=== PATIENT | female | born 2000 | race Caucasian/White ===

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

== ENCOUNTER → 2020-02-20 15:59 | Outpatient (CLI) | payer BC, SELFPAY ==
[2020-02-23 19:22] LABS: Neisseria gonorrhoeae, NAA Negative (Negative)
== END ==
PROVIDERS: Visit Provider Nurse Practitioner Obstetrics & Gynecology
DX: Z72.51 High risk heterosexual behavior (principal)
CPT/HCPCS: 87491; 87591

== ENCOUNTER 2020-06-22 16:30 | Emergency (ER) | payer BC, SELFPAY ==
[2020-06-22 16:39] VITALS: BP 133/86; PULSE 103; RESP 18; TEMP 36.6; O2SAT 98; BMI 25.5
--- NOTE | 2020-06-22 16:49 | HMH.EDUTC ---
[facility] [place] Disposition Clinical Impression: Exposure to COVID-19 virus Disposition: Home, Self-Care Condition on Discharge: Good Instructions: Preventing the Spread of Coronavirus Discharge Instructions Additional Instructions: You have been tested for COVID19. These results should be available in 24-48 hours. Due to your exposure, you must quarantine for 14 days. If your test is positive, you will isolate yourself for 10 days and until you are symptom free. Referrals: Mike Seo MD [Primary Care Provider] - Time of Disposition: 16:53 Medical Decision Making - Jimmy Inquiry Pt receiving controlled substance: No Vital Signs: 06/22/20 16:39 Temperature 97.9 F Temperature Source Oral Pulse Rate [Radial] 103 H Respiratory Rate 18 Blood Pressure [Right Arm] 133/86 Blood Pressure Mean [Right Arm] 101 Blood Pressure Source [Right Arm] Automatic Cuff Blood Pressure Position [Right Arm] Sitting 02 Sat by Pulse Oximetry 98 Oxygen Delivery Method Room Air Orders (Tests/Meds): ORDERS Category Date Time Status Covid-19 Nasal PCR Sendout Charlie Stat Lab 06/22/20 16:40 Received [facility] [place] HPI - General Stated complaint: covid test Time Seen by Provider: 06/22/20 16:49 Mode of Arrival: Ambulatory Source of Information: Patient Limitations: No Limitations Description of Symptoms (Recalled from Triage Doc. by RN): covid test, weird tast, dizzy, scraty throat HEENT Symptoms (Recalled from RN notes): Yes Resp Symptoms (Recalled from RN notes): No Skin Symptoms (Recalled from RN notes): No MS Symptoms (Recalled from RN notes): No Functional Status (Recalled from RN notes): wnl - History of Present Illness Provider Complaint: Patient's mother tested positive for COVID19 yesterday and patient started having symptoms last night. Has fever, headache, scratchy throat and has been dizzy. No loss of taste or smell. Onset (ago): day(s) (1) Relieving factors: none Exacerbating factors: none Associated symptoms: fever/chills Treatments prior to arrival: none - Related Data Previous Rx's Medication Instructions Recorded levonorgestrel-ethinyl estradiol 1 tab PO DAILY #84 tab 02/20/20 0.1 mg-20 mcg tablet quetiapine 50 mg tablet 50 mg PO QHS #30 tab 05/30/20 Allergies Allergy/AdvReac Type Severity Reaction Status Date / Time No Known Allergies Allergy Verified 02/20/20 10:39 - Worker's Comp Is this a Worker's Comp case?: No [facility] History - Hepatitis A Screen Drug use history?: No High risk sexual behaviors?: No History of sexually transmitted infection?: No Currently employed?: No Childcare worker?: No Do you have indoor plumbing?: Yes Do you have electricity?: Yes Attestation statement:: This patient has been screened for Hepatitis A risk factors. I have reviewed the patient's past medical history: Yes Medical History: Denies:: Cancer, Diabetes Mellitus Type 1, Diabetes Mellitus Type 2, MRSA Other Surgeries: Yes: No Previous Surgery Amputation: No Fractures: No - Social History Smoking Status: Never smoker Alcohol Intake: never Substance Use Type: denies use Occupational Status: other Housing: house Household Members: family Family Hx:: No significant family history ROS Obtained: Yes All systems reviewed & no additional complaints - Constitutional Constitutional: Reports body ache, Reports chills, Reports fever(s) - ENT Ears, Nose, Mouth, and Throat: Reports dizziness, Reports sore throat Physical Exam - General General appearance: alert, in no apparent distress - Head Head exam: normocephalic - Eye Eye exam: Present: PERRL - ENT ENT exam: Present: normal oropharynx - Neck Neck exam: Present: full ROM. Absent: lymphadenopathy - Respiratory Respiratory exam: Present: normal lung sounds bilaterally - Cardiovascular Cardiovascular exam: Present: regular rate, normal rhythm - Neurological Exam Neurological exam: Present: alert, oriented X3 - Psychi
[2020-06-22 17:06] VITALS: BP 133/86; PULSE 103; RESP 18; TEMP 36.6; O2SAT 98
== END 2020-06-22 17:07 | disposition home or self-care (01) ==
PROVIDERS: Emergency Provider Physician Assistant; PCP Emergency Medicine
DX: Z20.828 Contact with and (suspected) exposure to other viral communicable diseases (principal); R50.9 Fever, unspecified
CPT/HCPCS: 99201; U0003

== ENCOUNTER → 2021-03-03 16:20 | Outpatient (CLI) | payer BC, SELFPAY ==
[2021-03-03 16:58] LABS: Basophils # 0.1 K/mm3 (0-0.2); Basophils % 0.9 % (0.1-2.0); Eosinophils # 0.2 K/mm3 (0.0-0.4); Eosinophils % 1.7 % (0.1-12.0); Hematocrit 42.8 % (37.0-47.0); Hemoglobin 14.6 g/dL (12.2-16.2); Lymphocytes # 2.9 K/mm3 (0.7-4.5); Lymphocytes % 25.4 % (10-50); Mean Corpuscular HGB Conc 34.2 g/dL (31.8-35.4); Mean Corpuscular Hemoglobin 31.7 pg (27.0-31.2); Mean Corpuscular Volume 92.8 fl (81-99); Mean Platelet Volume 7.7 fl (7.4-10.4); Monocytes # 0.6 K/mm3 (0.1-1.0); Monocytes % 5.3 % (1.7-9.3); Neutrophils # 7.6 K/mm3 (1.8-7.8); Neutrophils % 66.7 % (37.0-80.0); Platelet Count 359 K/mm3 (142-424); Red Blood Count 4.61 M/mm3 (4.20-5.40); Red Cell Distribution Width 12.6 % (11.5-17.5); White Blood Count 11.5 K/mm3 (4.8-10.8)
[2021-03-03 17:43] LABS: Hemoglobin A1C 4.9 % (4.0-6.0)
[2021-03-03 18:51] LABS: Alanine Aminotransferase 12 U/L (12-78); Albumin Level 4.7 g/dl (3.5-5.0); Albumin/Globulin Ratio 1.6 (1.1-1.8); Alkaline Phosphatase 65 U/L (38-126); Anion Gap 17.2 mEq/L (5-15); Aspartate Amino Transferase 20 U/L (14-36); Bilirubin,Total 0.7 mg/dl (0.2-1.3); Blood Urea Nitrogen 13 mg/dl (7-17); Calcium 9.4 mg/dl (8.4-10.2); Carbon Dioxide 24 mmol/L (22.0-30.0); Chloride 102 mmol/L (98-107); Estimated Glomerular Filt Rate 126 ml/min (>60); GFR (African American) 153 ML/MIN (>60); Globulin 2.9 g/dL (1.3-3.2); Glucose 74 mg/dl (74-100); Potassium 4.2 mmoL/L (3.5-5.1); Sodium 139 mmol/L (136-145); Total Protein,Serum 7.6 g/dl (6.3-8.2)
[2021-03-03 19:08] LABS: Free Thyroxine Index 2.4 ug/dL (5.93-13.13); T4 (Thyroxine) 10.3 ug/dl (5.53-11.0); Triiodothryronine (T3) Uptake 23 % (23.5-40.5)
[2021-03-03 19:22] LABS: Thyroid Stimulating Hormone 3.85 uIU/mL (0.465-4.68)
[2021-03-03 19:40] LABS: Vitamin B12 300 pg/mL (239-931)
[2021-03-03 20:25] LABS: Iron 89 ug/dL (37-170)
[2021-03-03 20:34] LABS: Total Iron Binding Capacity 407 ug/dL (265-497)
[2021-03-11 18:23] LABS: 1,25 Dihydroxy Vitamin D 59 pg/mL (.); 1,25-Dihydroxy, Vitamin D-2 <10 pg/mL (.); 1,25-Dihydroxy, Vitamin D-3 59 pg/mL (.)
== END ==
PROVIDERS: Visit Provider Nurse Practitioner Psychiatric/Mental Health
DX: Z00.00 Encounter for general adult medical examination without abnormal findings (principal); Z79.899 Other long term (current) drug therapy; E66.3 Overweight; Z68.29 Body mass index [BMI] 29.0-29.9, adult
CPT/HCPCS: 36415; 80053; 82607; 82652; 83036; 83540; 83550; 84436; 84443; 84479; 85025

== ENCOUNTER → 2021-06-29 09:34 | Outpatient (CLI) | payer BC, SELFPAY | PROVIDERS: PCP Emergency Medicine; Visit Provider Nurse Practitioner | DX: U07.1 COVID-19 (principal) | CPT/HCPCS: C9803; U0003; U0005 ==

== ENCOUNTER 2021-08-24 15:47 | Emergency (ER) | payer BC, SELFPAY ==
[2021-08-24 15:49] VITALS: BP 125/81; PULSE 94; RESP 16; TEMP 36.9; O2SAT 98; BMI 29.9
--- NOTE | 2021-08-24 17:26 | HMH.EDGENADL ---
ED Disposition Clinical Impression: Episode of heavy vaginal bleeding Disposition: Home, Self-Care Condition on Discharge: Good Instructions: DI for Vaginal Bleeding Additional Instructions: follow up [employer], return for worse Referrals: Mike Seo MD [Primary Care Provider] - - Critical Care Critical Care Time: No Attestation: On 08/24/21, the high probability of a clinically significant, sudden or life threatening deterioration of the following system(s) required my full and direct attention, intervention and personal management. The time I documented below is in addition to time spent performing reported procedures but includes the following listed in this critical care notation. Medical Decision Making - Medical Records Medical records reviewed: Yes: I reviewed the patient's medical records. - Jimmy Inquiry Pt receiving controlled substance: No Vital Signs: 08/24/21 15:49 Temperature 98.4 F Temperature Source Oral Pulse Rate [Right Radial] 94 H Respiratory Rate 16 Blood Pressure [Right Arm] 125/81 Blood Pressure Mean [Right Arm] 95 Blood Pressure Source [Right Arm] Automatic Cuff Blood Pressure Position [Right Arm] Sitting 02 Sat by Pulse Oximetry 98 Oxygen Delivery Method Room Air - Lab Data Lab Results 08/24/21 17:15: Urine HCG, Qual Negative 08/24/21 17:18: Urine Color [place], Urine Appearance Cloudy, Urine pH 6.0, Ur Specific [place] >= 1.030, Urine Protein 2+, Urine Glucose (UA) Negative, Urine Ketones Trace, Urine Blood 3+, Urine Nitrate Negative, Urine Bilirubin 1+ A, Urine Urobilinogen 1.0, Ur Leukocyte Esterase Trace, Urine RBC 10-20, Urine WBC 20-50, Ur Squamous Epith Cells 3-5, Urine Bacteria 2+ Orders (Tests/Meds): ED MEDICATIONS Discontinued Medications Generic Name Dose Route Start Last Admin Trade Name Freq PRN Reason Stop Dose Admin Naproxen 500 mg 08/24/21 18:11 Naproxen 500mg Tablet PO 08/24/21 18:12 ONCE ONE ORDERS Category Date Time Status CMP [Comprehensive Metabolic Panel] Stat Lab 08/24/21 17:15 Ordered Complete Blood Count Auto Diff Stat Lab 08/24/21 17:15 Ordered Urine Culture Stat Micro 08/24/21 17:18 Received Medical Decision Narrative: reeval, pt says she was instructeds to take her period pills today by her [employer] declined labs here, r/b/a explaied preg test neg no appearance of severe pain, abd soft ok with plan to f/u [employer] and return for worse General Adult HPI - General Chief complaint: Vaginal Bleeding Stated complaint: passing large blood clots, Time Seen by Provider: 08/24/21 17:26 Mode of Arrival: Ambulatory Limitations: No Limitations Description of Symptoms (Recalled from ER Triage Doc. by RN): Pt c/o lower abd pain with vaginal bleeding consisting of large clots that began this AM. Advises that she has been more fatigued the last two days and. Pt advises that her last normal period was 2 months ago - History of Present Illness HPI narrative: abd cramps, passing vag bleed/clots tampons x3/pad now Onset (ago): hour(s) Location: abdomen Radiation: non-radiation Severity: moderate Consistency: intermittent Relieving factors: none Exacerbating factors: none Associated symptoms: denies other symptoms - Related Data Previous Rx's Medication Instructions Recorded levonorgestrel-ethinyl estradiol 1 tab PO DAILY #84 tab 02/20/20 0.1 mg-20 mcg tablet propranolol 10 mg tablet 10 mg PO TID PRN #90 tab 09/15/20 trazodone 50 mg tablet 50 mg PO QHS #30 tab 03/03/21 sertraline 50 mg tablet 50 mg PO DAILY #30 tab 07/27/21 Allergies Allergy/AdvReac Type Severity Reaction Status Date / Time No Known Allergies Allergy Verified 03/23/21 14:35 [facility] History - Hepatitis A Screen Drug use history?: No High risk sexual behaviors?: No History of sexually transmitted infection?: No Currently employed?: No Childcare worker?: No Do you have indoor plumbing?: Yes Do you have electricity?: Yes Attest
[2021-08-24 17:27] LABS: Microscopic, Urine URINE MICROSCOPIC (MICROSCOPIC)
[2021-08-24 17:30] LABS: Appearance,Urine CLOUDY (Clear); Blood, Urine 3+ (Negative); Color,Urine ORANGE (Yellow); Glucose,Urine (UA) Negative (Negative); Ketones,Urine TRACE (Negative); Leukocyte Esterase,Urine TRACE (Negative); Nitrate,Urine Negative (Negative); Protein,Urine 2+ (Negative); Specific Gravity, Urine >= 1.030 (1.005-1.030)
[2021-08-24 17:38] LABS: Urine Pregnancy, HCG Qual. Negative (Negative)
[2021-08-24 17:44] LABS: Bilirubin,Urine 1+ (Negative)
[2021-08-24 17:52] LABS: WBC,Urine 20-50 #/hpf (0-3)
[2021-08-24 17:53] LABS: Bacteria,Urine 2+ /lpf
[2021-08-24 19:01] VITALS: BP 129/73; PULSE 72
[2021-08-24 19:02] VITALS: BP 129/73; PULSE 72; RESP 18; TEMP 36.7; O2SAT 97
== END 2021-08-24 19:04 | disposition home or self-care (01) ==
PROVIDERS: Emergency Provider Emergency Medicine; PCP Emergency Medicine
DX: N93.9 Abnormal uterine and vaginal bleeding, unspecified (principal); F33.1 Major depressive disorder, recurrent, moderate
CPT/HCPCS: 81001; 81025; 87086; 99282

== ENCOUNTER → 2021-08-26 08:52 | Outpatient (CLI) | payer BC, SELFPAY ==
--- NOTE | 2021-08-26 08:56 | US_ITS ---
FINAL REPORT CLINICAL HISTORY: Heavy Bleeding and Pelvic Pain FINDINGS: Transvaginal sonographic images of the pelvis were obtained. The uterus is retroverted and measures 7 x 4.8 x 5 cm. The endometrium measures 10 mm, which is within normal limits. No uterine mass is identified. The right ovary measures 3.6 cm in length and left ovary is enlarged measuring 8.1 cm in length. Normal blood flow seen to the ovaries. Small follicles are seen within the right ovary. There are 2 presumed left ovarian cyst with the largest measuring 5 cm. There is a small amount of pelvic free fluid, nonspecific and may be physiologic. IMPRESSION: Two presumed left ovarian cysts. Consider follow-up ultrasound in 8-10 weeks. Small amount of pelvic free fluid, nonspecific and may be physiologic. Reviewed, Interpreted and Dictated by Jason Loja III, MD Transcribed by Abiola Archer Authenticated by Jason Loja III, MD on 08/26/2021 01:59:59 PM [facility]
== END ==
PROVIDERS: PCP Emergency Medicine; Visit Provider Nurse Practitioner Obstetrics & Gynecology
DX: R10.2 Pelvic and perineal pain (principal); N92.0 Excessive and frequent menstruation with regular cycle
CPT/HCPCS: 76830

== ENCOUNTER → 2021-09-14 16:52 | Outpatient (CLI) | payer BC, SELFPAY ==
[2021-09-16 22:25] LABS: Neisseria gonorrhoeae, NAA Negative (Negative)
== END ==
PROVIDERS: Visit Provider Nurse Practitioner Obstetrics & Gynecology
DX: Z72.51 High risk heterosexual behavior (principal)
CPT/HCPCS: 87491; 87591

== ENCOUNTER 2023-08-23 11:07 | Emergency (ER) | payer OTHER, SELFPAY ==
[2023-08-23 11:35] VITALS: BP 126/76; PULSE 110; RESP 20; TEMP 37.2; O2SAT 97; BMI 24.7
--- NOTE | 2023-08-23 12:02 | ED_ITS ---
Discharge Plan Disposition Patient Disposition: Home, Self-Care Condition: Good Prescriptions Prescriptions: New ondansetron 4 mg Tablet,Disintegrating 4 mg PO Q8H PRN (Reason: Nausea) Qty: 20 0RF Referrals Follow up/Referrals: Provider,Referral, MD [Primary Care Provider] - See instructions Activity Restrictions/Add. Instructions Additional Instructions/Restrictions: Drink extra fluids with and between meals. If you have difficulty drinking, try very small amounts of water or suck on ice chips. ? Avoid fruit juices, as these do not replace minerals and can actually increase diarrhea. ? Children and adults can use sports drinks to replenish electrolytes. Younger children and infants should use products formulated for children, like oral rehydration solutions. ? Eat food in small amounts and let your stomach recover. ? Get lots of rest. You may feel tired or weak. ? No greasy or fried foods for the next 24-48 hours BRAT diet Bananas Rice Apples and [place] ? Make sure to drink plenty of liquids ? Return if needed ? Straight to ER if any life threatening symptoms ? Zofran as prescribed ? You was given an outpatient order for diarrhea panel, please collect specimen and bring back to outpatient lab then call back to the [facility] or follow up with family doctor for results ? Follow up with family doctor in the next 48-72 hours if no improvement or any worsening of symptoms Clinical Impressions Clinical Impression: Nausea, vomiting and diarrhea Stand Alone Forms Stand Alone Forms: Work/School Release Instructions Patient Instructions: Nausea and Vomiting-Adult, Diarrhea Discharge ED Provider: Sharon Nagel [facility] [place] HPI General Stated complaint: vomiting, diarrhea Mode of Arrival: Ambulatory Source of Information: Patient Limitations: No Limitations Time Seen by Provider: 08/23/23 12:02 Description of Symptoms (Recalled from Triage Doc. by RN): PATIENT C/O VOMITING AND DIARRHEA THAT STARTED LAST NIGHT HEENT Symptoms (Recalled from RN notes): No Resp Symptoms (Recalled from RN notes): No Skin Symptoms (Recalled from RN notes): No MS Symptoms (Recalled from RN notes): No Functional Status (Recalled from RN notes): WNL History of Present Illness Provider Complaint: Patient states that she started with nausea, vomiting and diarrhea last night and it continued throughout the night States that she is not sure if she has a stomach bug or maybe food poisoning since her significant other is having similar symptoms Related Data Previous Rx's Medication Instructions Recorded ondansetron 4 mg disintegrating 4 mg PO Q8H PRN Nausea #20 tabs 08/23/23 tablet Allergies Allergy/AdvReac Type Severity Reaction Status Date / Time No Known Allergies Allergy Verified 10/13/22 16:10 Worker's Comp Is this a Worker's Comp case?: No [facility] Disclaimer: The information contained in this section may have been updated after the patient was seen, as this information can be updated by other users. Medical History Joint pain Social History Smoking Status: Never smoker alcohol intake: never substance use type: denies use current occupational status: employed Travel in the last 8 weeks: None household members: family housing: house number of children: 0 ROS Obtained: Yes All systems reviewed & no additional complaints except as documented and Yes Systems reviewed as appropriate & no additional complaints except as documented Constitutional Constitutional: Reports system reviewed and no additional complaints, except as documented and Reports as per HPI ENT Ears, Nose, Mouth, and Throat: Reports system reviewed and no additional complaints, except as documented and Reports as per HPI Cardiovascular Cardiovascular: Reports system reviewed and no additional complaints, except as documented and Reports as per HPI Respiratory Respiratory: Reports system reviewed and no additional complaints, except as documented and Reports as per HPI Gastrointestinal Gastrointestingal: Reports system reviewed and no additional complaints, except as documented, as per HPI, diarrhea, nausea and vomiting; Denies abdominal pain Musculoskeletal Musculoskeletal: Reports system reviewed and no additional complaints, except as documented and Reports as per HPI Physical Exam General General appearance: alert and in no apparent distress ENT ENT exam: Present mucous membranes moist Respiratory Respiratory exam: Present normal lung sounds bilaterally; Absent respiratory distress or wheezes Cardiovascular Cardiovascular exam: Present regular rate, normal rhythm and normal heart sounds Abdominal Exam Abdominal exam: Present soft and normal bowel sounds; Absent distention or tenderness Neurological Exam Neurological exam: Present alert, oriented X3 and normal gait Medical Decision Making Jimmy Inquiry Pt receiving controlled substance: No Jimmy was queried for this patient: No Vital Signs: 08/23/23 11:35 Temperature 98.9 F Temperature Source Oral Pulse Rate [Left Brachial] 110 H Respiratory Rate 20 Blood Pressure [Left Arm] 126/76 Blood Pressure Mean [Left Arm] 92 Blood Pressure Source [Left Arm] Automatic Cuff Blood Pressure Position [Left Arm] Sitting 02 Sat by Pulse Oximetry 97 Oxygen Delivery Method Room Air Medical Decision Narrative: Denies states that she just got off menstrual cycle
[2023-08-23 12:10] VITALS: BP 126/76; PULSE 110; RESP 20; TEMP 37.2; O2SAT 97
== END 2023-08-23 12:14 | disposition home or self-care (01) ==
PROVIDERS: Emergency Provider Nurse Practitioner
DX: R11.2 Nausea with vomiting, unspecified (principal); R19.7 Diarrhea, unspecified
CPT/HCPCS: 99204; 99212; G0463

== ENCOUNTER 2024-02-04 09:53 | Emergency (ER) | payer OTHER, SELFPAY ==
[2024-02-04 09:56] VITALS: BP 141/85; PULSE 104; RESP 18; TEMP 37.2; O2SAT 96; BMI 24.1
[2024-02-04 09:59] VITALS: BP 141/85
--- NOTE | 2024-02-04 10:23 | PC.NURSE ---
dr helm at bedside
[2024-02-04 10:30] VITALS: BP 113/65; PULSE 89; RESP 18; O2SAT 98
--- NOTE | 2024-02-04 10:30 | XR_ITS ---
PROCEDURE INFORMATION: Exam: XR Chest Exam date and time: 02/04/2024 10:41 AM Age: 23 years old Clinical indication: Dyspnea TECHNIQUE: Imaging protocol: Radiologic exam of the chest. Views: 1 view. COMPARISON: No relevant prior studies available. FINDINGS: Lungs: Unremarkable. No consolidation. Pleural spaces: Unremarkable. No pleural effusion. No pneumothorax. Heart/Mediastinum: Unremarkable. No cardiomegaly. Bones/joints: Unremarkable. IMPRESSION: No acute findings.
--- NOTE | 2024-02-04 10:31 | ED_ITS ---
Discharge Plan Disposition Chief Complaint: Upper Respiratory Infection Prescriptions Prescriptions: No Action ondansetron 4 mg Tablet,Disintegrating 4 mg PO Q8H PRN (Reason: Nausea) Qty: 20 0RF Referrals Follow up/Referrals: Provider,Referral, [Primary Care Provider] - See instructions Clinical Impressions Clinical Impression: COVID-19, Laryngitis, Diarrhea, Cough, Tachycardia Discharge ED Provider: Elena Lowe General Adult HPI General Chief complaint: Upper Respiratory Infection Stated complaint: Covid+ Fever [address] [facility] Time Seen by Provider: 02/04/24 10:18 Mode of Arrival: Ambulatory Source of Information: Patient Limitations: No Limitations Description of Symptoms (Recalled from ER Triage Doc. by RN): Patient reports testing positive for COVID yesterday. Complaint of sore throat since Tuesday. States she checked her O2 at home and it read 92 so she came to the ER. History of Present Illness HPI narrative: Patient is a 23-year-old female presenting today with 3 days of cough diarrhea body aches fever and hoarse voice. States she had a home pulse oximeter with her parents and thought that her oxygen saturations were getting low and she came to the emergency department. She denies any significant shortness of breath. She has no underlying heart or lung problems or any other past medical problems. Related Data Previous Rx's Medication Instructions Recorded ondansetron 4 mg disintegrating 4 mg PO Q8H PRN Nausea #20 tabs 08/23/23 tablet Allergies Allergy/AdvReac Type Severity Reaction Status Date / Time No Known Allergies Allergy Verified 10/13/22 16:10 [facility] Disclaimer: The information contained in this section may have been updated after the patient was seen, as this information can be updated by other users. Medical History Joint pain Social History Smoking Status: Never smoker alcohol intake: never substance use type: denies use current occupational status: employed Travel in the last 8 weeks: None household members: family housing: house number of children: 0 ROS Obtained: Yes All systems reviewed & no additional complaints except as documented Physical Exam General General appearance: alert, in no apparent distress and other (Hoarse voice) ENT ENT exam: Present normal exam, normal oropharynx and mucous membranes moist Respiratory Respiratory exam: Present normal lung sounds bilaterally; Absent respiratory distress Cardiovascular Cardiovascular exam: Present normal rhythm and tachycardia Abdominal Exam Abdominal exam: Present soft; Absent distention or tenderness Neurological Exam Neurological exam: Present alert and oriented X3 Medical Decision Making Jimmy Inquiry Pt receiving controlled substance: No Vital Signs: 02/04/24 09:56 02/04/24 09:59 02/04/24 10:30 Temperature 99.0 F Temperature Source Oral Pulse Rate 89 Pulse Rate [Radial] 104 H Respiratory Rate 18 18 Blood Pressure 141/85 H 113/65 Blood Pressure [Right Arm] 141/85 H Blood Pressure Mean 110 81 Blood Pressure Mean [Right Arm] 103 Blood Pressure Source [Right Arm] Automatic Cuff Blood Pressure Position [Right Arm] Sitting 02 Sat by Pulse Oximetry 96 98 Oxygen Delivery Method Room Air 02/04/24 11:00 Temperature Temperature Source Pulse Rate 86 Pulse Rate [Radial] Respiratory Rate 18 Blood Pressure 97/69 L Blood Pressure [Right Arm] Blood Pressure Mean 77 Blood Pressure Mean [Right Arm] Blood Pressure Source [Right Arm] Blood Pressure Position [Right Arm] 02 Sat by Pulse Oximetry 10 L Oxygen Delivery Method Lab Data Lab results reviewed: Yes I reviewed the patient's lab results. Lab Results 02/04/24 10:36: WBC 6.6, RBC 3.92 L, Hgb 12.9, Hct 38.2, MCV 97.6, MCH 33.0 H, MCHC 33.8, RDW 12.9, Plt Count 256, MPV 8.0, Neut % (Auto) 79.2, Lymph % (Auto) 12.9, [place] % (Auto) 5.5, Eos % (Auto) 1.4, Baso % (Auto) 0.9, Neut # (Auto) 5.2, Lymph # (Auto) 0.9, [place] # (Auto) 0.4, Eos # (Auto) 0.1, Baso # (Auto) 0.1, Sodium 139, Potassium 4.0, Chloride 108 H, Carbon Dioxide 25, Anion Gap 10.0, BUN 10, Creatinine 0.60, Estimated Creat Clear 150, Estimated GFR 123, Est GFR ( Amer) 149, Glucose 85, Calcium 8.8, Total Bilirubin 0.7, AST 21, ALT 16, Alkaline Phosphatase 66, Total Protein 6.9, Albumin 4.2, Globulin 2.7, Albumin/Globulin Ratio 1.6 02/04/24 10:36 02/04/24 10:36 Orders (Tests/Meds): ED MEDICATIONS Discontinued Medications Generic Name Dose Route Start Last Admin Trade Name Deepika PRN Reason Stop Dose Admin Dexamethasone Sodium Phosphate 10 mg 02/04/24 10:29 02/04/24 10:42 Dexamethasone 4mg/Ml 1ml Vial IV 02/04/24 10:30 10 mg ONCE ONE Administration Lactated Ringer's 1,000 mls @ 999 mls/hr 02/04/24 10:30 02/04/24 10:42 Lactated Ringer's 1000 Ml Bag IV 02/04/24 11:30 999 mls/hr .Q1H1M ABDULAZIZ Administration Ketorolac Tromethamine 15 mg 02/04/24 10:29 02/04/24 10:42 Ketorolac 30mg/Ml Vial IV 02/04/24 10:30 15 mg ONCE ONE Administration ORDERS Category Date Time Status CXR --portable [XR chest portable] Stat Exams 02/04/24 10:30 Completed CBC w/Auto Diff [Complete Blood Count Auto Diff] Stat Lab 02/04/24 10:36 Completed CMP [Comprehensive Metabolic Panel] Stat Lab 02/04/24 10:36 Completed Medical Decision Narrative: 23-year-old presenting today with viral syndrome consistent with COVID-19. She had a home positive COVID-19 test and all of her symptoms are explainable from that. However she has had diarrhea decreased p.o. intake and is tachycardic we will check electrolytes and give IV fluids. Additionally will administer Toradol she had Tylenol at home I advised that she take Tylenol and ibuprofen at home after this. Her home pulse oximeter likely was false reading as her oxygen saturations are 97%. Will get a chest x-ray to confirm that she does not have a chest x-ray. Also administer Toradol and give IV fluids and reassess Chest x-ray performed which I first interpreted shows no acute cardiopulmonary emergency Reassessment 1148 patient is vital signs improved patient feeling much better stable for discharge. Workup unremarkable from an emergency standpoint. Supportive care discussed she was discharged in improved and stable condition Critical Care Critical Care Time Critical Care Time: No
[2024-02-04] MEDS: LACTATED RINGERS 1000ML 1,000 ML 999 ML IV (10:42)
[2024-02-04] MEDS: DEXAMETHASONE 4MG/ML 1ML VIAL 10 MG IV (10:42)
[2024-02-04] MEDS: KETOROLAC 30MG/ML VIAL 15 MG IV (10:42)
[2024-02-04 10:44] LABS: Basophils # 0.1 K/mm3 (0-0.2); Basophils % 0.9 % (0.1-2.0); Eosinophils # 0.1 K/mm3 (0.0-0.4); Eosinophils % 1.4 % (0.1-12.0); Hematocrit 38.2 % (37.0-47.0); Hemoglobin 12.9 g/dL (12.2-16.2); Lymphocytes # 0.9 K/mm3 (0.7-4.5); Lymphocytes % 12.9 % (10-50); Mean Corpuscular HGB Conc 33.8 g/dL (31.8-35.4); Mean Corpuscular Volume 97.6 fl (81-99); Monocytes # 0.4 K/mm3 (0.1-1.0); Monocytes % 5.5 % (1.7-9.3); Neutrophils # 5.2 K/mm3 (1.8-7.8); Neutrophils % 79.2 % (37.0-80.0); Platelet Count 256 K/mm3 (142-424); Red Blood Count 3.92 M/mm3 (4.20-5.40); Red Cell Distribution Width 12.9 % (11.5-17.5); White Blood Count 6.6 K/mm3 (4.8-10.8)
--- NOTE | 2024-02-04 10:50 | PC.NURSE ---
xr at bedside
[2024-02-04 11:00] VITALS: BP 97/69; PULSE 86; RESP 18; O2SAT 10
[2024-02-04 11:03] LABS: Alanine Aminotransferase 16 U/L (12-78); Albumin Level 4.2 g/dl (3.5-5.0); Albumin/Globulin Ratio 1.6 (1.1-1.8); Alkaline Phosphatase 66 U/L (38-126); Aspartate Amino Transferase 21 U/L (14-36); Bilirubin,Total 0.7 mg/dl (0.2-1.3); Blood Urea Nitrogen 10 mg/dl (7-17); Calcium 8.8 mg/dl (8.4-10.2); Carbon Dioxide 25 mmol/L (22.0-30.0); Chloride 108 mmol/L (98-107); Creatinine Clearance Estimated 150 mL/min (50-200); Estimated Glomerular Filt Rate 123 ml/min (>60); GFR (African American) 149 ML/MIN (>60); Globulin 2.7 g/dL (1.3-3.2); Glucose 85 mg/dl (74-100); Sodium 139 mmol/L (136-145); Total Protein,Serum 6.9 g/dl (6.3-8.2)
--- NOTE | 2024-02-04 11:48 | PC.NURSE ---
DR CARBAJAL AT BEDSIDE TO UPDATE PT AND FAMILY
[2024-02-04 11:55] VITALS: BP 106/67; PULSE 90; RESP 16; TEMP 37.2; O2SAT 100
== END 2024-02-04 11:55 | disposition home or self-care (01) ==
LOC: ER 10:10
PROVIDERS: Emergency Provider Student in an Organized Health Care Education/Training Program
DX: U07.1 COVID-19 (principal); R50.9 Fever, unspecified; R05.8 Other specified cough; J04.0 Acute laryngitis; R00.0 Tachycardia, unspecified; R19.7 Diarrhea, unspecified; R07.0 Pain in throat
CPT/HCPCS: 71045; 80053; 85025; 96361; 96374; 96375; 99284; J1100; J1885; J7120

== ENCOUNTER 2025-02-26 12:19 | Outpatient (CLI) | payer OTHER, SELFPAY ==
--- OUTSIDE RECORDS SUMMARY | 2025-02-26 12:21 | XMS_ITS | Clinical Summary ---
Author Organization Healthcare Address [address] [place] [address] Care Team Providers Care Seo Intern Name Role Phone Mike Seo MD Primary Care Provider + [phone] Family History Medical History Relation Name Comments Kidney Stones Father Thyroid disease Maternal Grandfather Fibromyalgia Maternal Grandmother Fibromyalgia Mother's Sister Crohn's disease Other 1 Rheum arthritis Other 2 Relation Name Status Comments Father Maternal Grandfather Maternal Grandmother Mother's Sister Other 1 Other 2 Social History Tobacco Use Types Packs/Day Years Used Date Smoking Tobacco: Never Assessed Comments Unknown Sex and Gender Information Value Date Recorded Sex Assigned at Not on file Legal Sex Female 6:35 PM EDT Gender Identity Not on file Sexual Orientation Not on file Last Filed Vital Signs Vital Sign Reading Time Taken Comments Blood Pressure - - Pulse - - Temperature - - Respiratory Rate - - Oxygen Saturation - - Inhaled Oxygen Concentration - - Weight 69 kg (152 lb 1.9 oz) 12/30/2015 9:39 AM EDT Height 164.1 cm (5' 4.61 ) 12/30/2015 9:39 AM ED T Body Mass Index 25.62 12/30/2015 9:39 AM EDT Plan of Treatment Not on file Care Teams Seo Intern Relationship Specialty Start Date End Date Mike Seo MD [address] [place] [address] PCP - General 12/05/20
[2025-02-26 13:07] LABS: Hematocrit 40.1 % (37.0-47.0); Hemoglobin 14.1 g/dL (12.2-16.2); Immature Granulocytes % 0.2 %; Mean Corpuscular HGB Conc 35.2 g/dL (31.8-35.4); Mean Corpuscular Hemoglobin 32.9 pg (27.0-31.2); Mean Corpuscular Volume 93.5 fl (81-99); Nucleated Red Blood Cells % 0 %; Platelet Count 364 K/mm3 (142-424); Red Blood Count 4.29 M/mm3 (4.20-5.40); Red Cell Distribution Width-SD 41.3 fL; White Blood Count 8.3 K/mm3 (4.8-10.8)
[2025-02-26 13:37] LABS: Hemoglobin A1C 4.5 % (4.0-6.0)
[2025-02-26 14:02] LABS: Albumin Level 4.2 g/dl (3.5-5.0); Chloride 101 mmol/L (98-107); Potassium 4.1 mmoL/L (3.5-5.1); Sodium 136 mmol/L (136-145)
[2025-02-26 14:04] LABS: Blood Urea Nitrogen 8 mg/dl (7-17); Creatinine,Serum 0.60 mg/dl (0.52-1.04); Estimated Glomerular Filt Rate 122 ml/min (>60); GFR (African American) 147 ML/MIN (>60)
[2025-02-26 14:05] LABS: Alanine Aminotransferase 18 U/L (12-78); Albumin/Globulin Ratio 1.3 (1.1-1.8); Alkaline Phosphatase 67 U/L (38-126); Anion Gap 13.1 mEq/L (5-15); Aspartate Amino Transferase 22 U/L (14-36); Bilirubin,Total 1.5 mg/dl (0.2-1.3); Calcium 10.0 mg/dl (8.4-10.2); Carbon Dioxide 26 mmol/L (22.0-30.0); Globulin 3.3 g/dL (1.3-3.2); Glucose 84 mg/dl (74-100); Total Protein,Serum 7.5 g/dl (6.3-8.2)
[2025-02-26 14:34] LABS: Free Thyroxine Index 3.0 ug/dL (5.93-13.13); T4 (Thyroxine) 10.3 ug/dl (5.53-11.0); Triiodothryronine (T3) Uptake 29 % (23.5-40.5)
[2025-02-26 14:47] LABS: Thyroid Stimulating Hormone 2.26 uIU/mL (0.465-4.68)
[2025-02-26 15:21] LABS: RPR W/RFX Titers Nonreactive (Nonreactive)
== END 2025-02-26 23:59 | disposition home or self-care (01) ==
LOC: LAB 12:20
PROVIDERS: PCP Internal Medicine Adolescent Medicine; Visit Provider Internal Medicine Adolescent Medicine
DX: I88.9 Nonspecific lymphadenitis, unspecified (principal); Z11.3 Encounter for screening for infections with a predominantly sexual mode of transmission; L68.0 Hirsutism
CPT/HCPCS: 36415; 80053; 80074; 83036; 84402; 84436; 84443; 84479; 85025; 86592; 87389